=== PATIENT | female | born 1950 | race Caucasian/White ===

== ENCOUNTER → 2016-04-01 | Outpatient (CLI) | payer MEDICARE, MEDICAID ==
[~2016-04-01] MED LIST: AMOXICILLIN 8751 TAB PO; ASPIRIN 81M81 MG/TA2 PO; CARAFATE 1GM1 G PO; CEFTIN500 MG PO; CIPRO 500MG TA500 MG PO; CLEOCIN HCL300 MG PO; FLAGYL 250250 MG/TAB PO; FLAGYL500 MG PO; GLUCOPHAGE500 MG/TAB PO; HCTZ 25MG TAB25 MG PO; IBU-2200 MG PO; INSLANT SQ; IRON325 MG PO; JANUVIA 100MG100 MG PO; K-TAB20 PO; KLOR-CON 1010 MEQ PO; KLOR-CON M2020 MEQ PO; LANTUS100 U/ML SC; LANTUS100 U/ML SQ; LASIX 20MG TABL20 MG PO; LEVAQUIN 5500 MG/TA1 PO; LEVAQUIN 750MG750 M1 PO; LEVEMIR FLEX100 U/ML SQ; LEVEMIR SQ; LEVEMIR100 U/ML SQ; LIPITOR20 MG PO; MACROBID 1100 MG/CAP PO; NEXIUM 40MG40 MG PO; NORCO 325 MG-51 TAB PO; NOVLOG SQ; NOVOLOG 100U100 U/M1 SC; OMNICEF 300MG300 MG PO; PEPCID 20MG TAB20 MG PO; PHENERGAN 25 TA25 MG PO; PREDFORTE5ML; PRILOSEC 20MG20 MG PO; PRINIVIL20 MG PO; PROTONIX 40MG T40 MG PO; SEPTRA DS 8001 TAB PO; TENORMIN 5050 MG/TAB PO; TYLENOL 325MG325 MG PO; TYLENOL 500MG500 MG PO; ULTRAM 50MG TAB50 MG PO; VALIUM 5MG T5 MG/TAB PO; VITAMIN B COMPL1 SGL PO; ZESTRIL 20MG TA20 MG PO; ZOFRAN 4MG T4 MG/TAB PO; ZOFRAN ODT4 MG PO; ZOFRAN8 MG PO; ZYVOX 600MG600 MG PO; [UNRECOGNIZED DRUG - OTHER] PO
[2016-04-01 14:49] LABS: INFLUENZA B NEGATIVE
== END ==
LOC: ZCOL.LAB 11:30 → COL.LAB 11:30
PROVIDERS: Internal Medicine
DX: J11.2 Influenza due to unidentified influenza virus with gastrointestinal manifestations (principal)

== ENCOUNTER → 2016-04-03 | Outpatient (CLI) | payer MEDICARE, MEDICAID | LOC: ZCOL.LAB 07:51 | DX: E11.319 Type 2 diabetes mellitus with unspecified diabetic retinopathy without macular edema (principal) ==

== ENCOUNTER → 2016-04-04 | Outpatient (CLI) | payer MEDICARE, MEDICAID | LOC: ZCOL.LAB 14:40 | DX: R01.0 Benign and innocent cardiac murmurs (principal) ==

== ENCOUNTER → 2016-04-11 | Outpatient (CLI) | payer MEDICARE, MEDICAID ==
[2016-04-11 12:53] LABS: PH 5 (5-8); SQUAMOUS EPITHELIAL 0-2 /hpf; URINE APPEARANCE Clear; URINE BACTERIA Rare /hpf; URINE BILIRUBIN Negative (NEGATIVE); URINE BLOOD Negative (NEGATIVE); URINE COLOR Straw; URINE GLUCOSE Negative (NEGATIVE); URINE KETONE Negative (NEGATIVE); URINE RBC 0-2 /hpf; URINE UROBILINOGEN Negative (NEGATIVE); URINE WBC 0-2 /hpf
== END ==
LOC: ZCOL.LAB 12:37
PROVIDERS: Internal Medicine
DX: N39.0 Urinary tract infection, site not specified (principal)